=== PATIENT | male | born 1960 | race Two or more races ===

== ENCOUNTER 2020-05-05 20:00 | Inpatient (IN) | payer MEDICAID, OTHER ==
[~2020-05-05] VITALS: Ht 170.2 cm; Wt 61.7 kg
[~2020-05-05 20:00] MED LIST: PHEN100C4
[2020-05-05] MEDS ORDERED: SODIUM CHLORIDE 0.9% 500 ML IV ONE (20:15)
[2020-05-05] MEDS ORDERED: LEVETIRACETAM 1000MG/100ML 100 ML IV ONE (20:15)
[2020-05-05] MEDS ORDERED: ONDANSETRON HCL 4MG/2ML INJ IV ONE (20:45)
[2020-05-05] MEDS ORDERED: LEVETIRACETAM 500MG PREMIX 100 ML IV ONE (20:45)
[2020-05-05] MEDS ORDERED: LORAZEPAM 2MG/ML CPJ IV ONE ×2 (20:45→21:00)
[2020-05-05] MEDS ORDERED: LIDOCAINE HCL/EPINEPHRINE 1%-EPI 1:100,000 20 ML VIAL INFIL NR (20:45)
[2020-05-05] MEDS ORDERED: LIDOCAINE HCL/EPINEPHRINE 1%-EPI 1:100,000 30 ML VIAL INFIL ONE (20:45)
[2020-05-05] MEDS ORDERED: LORAZEPAM 2MG/ML CPJ ONE (21:09)
[2020-05-05 21:21] LABS: BASOPHILS % 0.7 % (0.0-2.0); EOSINOPHILS % 0.8 % (0.0-5.0); HEMATOCRIT. 42.1 % (42.0-52.0); HEMOGLOBIN. 14.3 g/dL (14.0-18.0); LYMPHOCYTES % 16.8 % (20.0-50.0); MEAN CORPUSCULAR HEMOGLOBIN 27.9 pg (28.0-32.0); MEAN CORPUSCULAR VOLUME 82.5 fL (80.0-94.0); MEAN PLATELET VOLUME 9.4 fl (7.4-10.4); MONOCYTES % 9.1 % (2.0-8.0); NEUTROPHILS % 72.6 % (40.0-76.0); PLATELET 107 x1000/uL (130-400); RED BLOOD CELL COUNT 5.11 mill/uL (4.7-6.1)
[2020-05-05 21:28] LABS: CHLORIDE 105 mEq/L (98-107)
[2020-05-05] MEDS ORDERED: HALOPERIDOL LACTATE 5MG/ML VIAL IM ONE (21:30)
[2020-05-05 21:33] LABS: ETHANOL BLOOD < 10 mg/dL
[2020-05-05 21:55] LABS: CLARITY URINE CLEAR (CLEAR); COLOR URINE YELLOW (YELLOW); KETONES URINE NEGATIVE (NEGATIVE); LEUKOCYTE ESTERASE URINE TRACE (NEGATIVE); NITRITE URINE NEGATIVE (NEGATIVE); OCCULT BLOOD URINE TRACE (NEGATIVE); PROTEIN URINE NEGATIVE (NEGATIVE); SPECIFIC GRAVITY URINE 1.006 (1.005-1.030); UROBILINOGEN URINE 0.2 E.U./dL (0.2-1.0)
[2020-05-05] MEDS ORDERED: NICARDIPINE 100 MG in SODIUM CHLORIDE 0.9% 60 ML IV PRN ×2 (22:00→22:30)
[2020-05-05] MEDS ORDERED: MORPHINE SULFATE 4 MG/ML CPJ (NOT FOR IM USE) IV PRN (22:00)
[2020-05-05 22:10] LABS: *AMPHETAMINES SCREEN URINE NEGATIVE (NEGATIVE); *BARBITURATES SCREEN URINE NEGATIVE (NEGATIVE); *BENZODIAZEPINES SCREEN URINE NEGATIVE (NEGATIVE)
[2020-05-05 22:11] LABS: *COCAINE SCREEN URINE NEGATIVE (NEGATIVE); CANNABINOID URINE SCREEN NEGATIVE (NEGATIVE); METHADONE URINE SCREEN NEGATIVE (NEGATIVE); OPIATES URINE SCREEN NEGATIVE (NEGATIVE); PHENCYCLIDINE URINE SCREEN NEGATIVE (NEGATIVE)
[2020-05-05] MEDS ORDERED: ACETAMINOPHEN 650MG SUPP PR PRN ×2 (22:45)
[2020-05-05] MEDS ORDERED: LORAZEPAM 2MG/ML CPJ IV PRN (22:45)
[2020-05-05] MEDS ORDERED: ONDANSETRON HCL 4MG/2ML INJ IV PRN (22:45)
[2020-05-05] MEDS ORDERED: KCL 20MEQ/100ML PREMIX 100 ML IV NR (23:59)
[2020-05-06] VITALS (32 sets, daily range): BP systolic 91–134; BP diastolic 61–80
[2020-05-06 04:57] LABS: BASOPHILS % 0.3 % (0.0-2.0); HEMATOCRIT. 40.6 % (42.0-52.0); HEMOGLOBIN. 13.8 g/dL (14.0-18.0); LYMPHOCYTES % 7.9 % (20.0-50.0); MEAN CORPUSCULAR HEMOGLOBIN 27.9 pg (28.0-32.0); MEAN CORPUSCULAR VOLUME 81.9 fL (80.0-94.0); MEAN PLATELET VOLUME 9.6 fl (7.4-10.4); MONOCYTES % 7.4 % (2.0-8.0); NEUTROPHILS % 84.4 % (40.0-76.0); PLATELET 110 x1000/uL (130-400); RED BLOOD CELL COUNT 4.95 mill/uL (4.7-6.1); RED CELL DISTRIBUTION WIDTH 13.7 % (11.6-14.6)
[2020-05-06 05:04] LABS: CHLORIDE 109 mEq/L (98-107)
[2020-05-06 05:11] LABS: PHOSPHORUS 2.2 mg/dL (2.5-4.9)
[2020-05-06 05:12] LABS: LDL CHOLESTEROL 77 mg/dL (5-100)
[2020-05-06 05:13] LABS: HDL CHOLESTEROL 50 mg/dL (40-59)
[2020-05-06] MEDS ORDERED: LEVETIRACETAM 500MG PREMIX 100 ML IV SCH (06:00)
[2020-05-06] MEDS: DEXT 5%/LACTATED RINGERS 1,000 ML IV SCH ×2 (06:30→14:40)
[2020-05-06] MEDS ORDERED: IPRATROPIUM/ALBUTEROL 0.5-3(2.5)MG/3ML NEB HHN PRN (09:15)
[2020-05-06] MEDS: PANTOPRAZOLE SODIUM 40 MG/VIAL IV SCH (10:10)
[2020-05-06] MEDS ORDERED: VANCOMYCIN 1,750 MG in DEXT 5% WATER 250 ML IV NR (11:00)
[2020-05-06] MEDS ORDERED: BACITRACIN 15GM TUBE TOP NR (12:00)
[2020-05-06] MEDS ORDERED: PIPERACILLIN/TAZOBACTAM 3.375 G in DEXT 5% WATER 100 ML IV SCH (12:00)
[2020-05-06] MEDS: LEVETIRACETAM 500MG PREMIX 100 ML IV SCH (17:35)
[2020-05-06] MEDS ORDERED: VANCOMYCIN 1 G PREMIX 200 ML IV SCH (18:00)
[2020-05-06] MEDS: VANCOMYCIN 750 MG PREMIX 150 ML IV SCH (20:46)
[2020-05-07] VITALS (18 sets, daily range): BP systolic 116–144; BP diastolic 62–81
[2020-05-07] MEDS: VANCOMYCIN 750 MG PREMIX 150 ML IV SCH (03:15)
[2020-05-07] MEDS: DEXT 5%/LACTATED RINGERS 1,000 ML IV SCH (03:15)
[2020-05-07] MEDS: LEVETIRACETAM 500MG PREMIX 100 ML IV SCH ×2 (05:06→17:57)
[2020-05-07 05:50] LABS: CHLORIDE 105 mEq/L (98-107)
[2020-05-07 05:59] LABS: HEMATOCRIT 38.9 % (42.0-52.0); HEMOGLOBIN 13.4 g/dL (14.0-18.0); MEAN CORPUSCULAR HEMOGLOBIN 28.2 pg (28.0-32.0); MEAN CORPUSCULAR VOLUME 82.2 fL (80.0-94.0); PLATELET 109 x1000/uL (130-400); RED BLOOD CELL COUNT 4.73 mill/uL (4.7-6.1)
[2020-05-07] MEDS: PANTOPRAZOLE SODIUM 40 MG/VIAL IV SCH (08:11)
[2020-05-07] MEDS ORDERED: POTASSIUM CHLORIDE 20MEQ TABLET SR PO NR (09:30)
[2020-05-07] MEDS ORDERED: CLONIDINE 0.1MG TABLET PO PRN (09:30)
[2020-05-07] MEDS: CEFAZOLIN 1000MG PREMIX 50 ML IV SCH (11:58)
[2020-05-08] VITALS: BP 118/57
[2020-05-08] MEDS: DEXT 5%/LACTATED RINGERS 1,000 ML IV SCH (01:25)
[2020-05-08] MEDS: CEFAZOLIN 1000MG PREMIX 50 ML IV SCH ×3 (01:25→11:20)
[2020-05-08 02:02] VITALS: BP 118/57
[2020-05-08 06:00] VITALS: BP 146/64
[2020-05-08] MEDS: LEVETIRACETAM 500MG PREMIX 100 ML IV SCH (06:13)
[2020-05-08 08:00] VITALS: BP 132/65
[2020-05-08] MEDS ORDERED: FAMOTIDINE 20MG/2ML VIAL IV SCH (09:00)
[2020-05-08 12:00] VITALS: BP 136/65
[2020-05-08 12:50] VITALS: BP 136/65
[2020-06-12] MEDS ORDERED: LACO200T2 PO ×2 (11:50→13:06)
[2020-06-13] MEDS ORDERED: LACT10SO7 PO (12:50)
[2020-06-13] MEDS ORDERED: KEPP500 PO (12:51)
== END 2020-05-08 15:00 | disposition home or self-care (01) | DRG 55 ==
LOC: ER 20:00 → MICUSO 21:34 → MICUNO 05-06 07:19 → 6EST 05-07 10:56
PROVIDERS: ADMIT Internal Medicine; ATTEND Internal Medicine
PROC: 0HQ0XZZ Repair Scalp Skin, External Approach (ICD-10-PCS; principal; 2020-05-06)
DX: S06.6X0A Traumatic subarachnoid hemorrhage without loss of consciousness, initial encounter (principal); S01.01XA Laceration without foreign body of scalp, initial encounter; E83.51 Hypocalcemia; E87.6 Hypokalemia; G40.909 Epilepsy, unspecified, not intractable, without status epilepticus; I10 Essential (primary) hypertension; R47.01 Aphasia; W11.XXXA Fall on and from ladder, initial encounter; Y93.89 Activity, other specified; Y92.89 Other specified places as the place of occurrence of the external cause; Y99.8 Other external cause status
CPT/HCPCS: 36415; 71045; 80048; 80053; 80061; 80185; 80305; 80320; 81003; 82962; 83036; 83735; 83880; 84100; 84484; 85025; 85027; 93005; 93970; 96365; 97162; 99291; C9113; J0690; J1953; J2060; J2270; J2405; J2543; J3370; J3480; J3490; J7040; J7050; J7060; G0480

== ENCOUNTER 2020-06-11 16:56 | Inpatient (IN) | payer MEDICAID, OTHER ==
[~2020-06-11] VITALS: Ht 167.6 cm; Wt 69.9 kg
[2020-06-11 19:20] LABS: BASOPHILS % 0.9 % (0.0-2.0); EOSINOPHILS % 1.1 % (0.0-5.0); HEMATOCRIT. 41.2 % (42.0-52.0); MEAN CORPUSCULAR HEMOGLOBIN 28.3 pg (28.0-32.0); MEAN CORPUSCULAR VOLUME 83.7 fL (80.0-94.0); MEAN PLATELET VOLUME 9.2 fl (7.4-10.4); MONOCYTES % 9.3 % (2.0-8.0); NEUTROPHILS % 70.7 % (40.0-76.0); PLATELET 114 x1000/uL (130-400); RED BLOOD CELL COUNT 4.93 mill/uL (4.7-6.1); RED CELL DISTRIBUTION WIDTH 13.9 % (11.6-14.6)
[2020-06-11 19:24] LABS: CHLORIDE 109 mEq/L (98-107)
[2020-06-11 19:30] LABS: ETHANOL BLOOD < 10 mg/dL
[2020-06-11 19:35] LABS: CREATINE KINASE 163 IU/L (39-308)
[2020-06-11] MEDS ORDERED: LORAZEPAM 2MG/ML CPJ IV ONE (19:45)
[2020-06-11] MEDS ORDERED: IOHEXOL-350 100 ML BOTTLE ONE (20:59)
[2020-06-11] MEDS ORDERED: ONDANSETRON HCL 4MG/2ML INJ IV PRN (21:30)
[2020-06-11] MEDS ORDERED: TRAZODONE HCL 50MG TABLET PO PRN (21:30)
[2020-06-11] MEDS ORDERED: AMLODIPINE 10MG TABLET PO SCH (21:30)
[2020-06-11] MEDS ORDERED: KCL 20MEQ/100ML PREMIX 100 ML IV ONE (21:30)
[2020-06-11] MEDS ORDERED: CLONIDINE 0.1MG TABLET PO PRN (21:30)
[2020-06-11] MEDS ORDERED: LORAZEPAM 2MG/ML CPJ IV PRN (21:30)
[2020-06-11] MEDS ORDERED: POTASSIUM CHLORIDE 20MEQ TABLET SR PO NR (21:30)
[2020-06-11] MEDS ORDERED: LEVETIRACETAM 500MG PREMIX 100 ML IV SCH (21:30)
[2020-06-11] MEDS ORDERED: ACETAMINOPHEN 325MG TABLET PO PRN (21:30)
[2020-06-11] MEDS: HEPARIN 5000 UNITS/ML VIAL SUBCUT SCH (21:45)
[2020-06-11 22:07] LABS: CLARITY URINE CLEAR (CLEAR); COLOR URINE YELLOW (YELLOW); KETONES URINE NEGATIVE (NEGATIVE); LEUKOCYTE ESTERASE URINE 1+ (NEGATIVE); NITRITE URINE NEGATIVE (NEGATIVE); OCCULT BLOOD URINE NEGATIVE (NEGATIVE); PROTEIN URINE NEGATIVE (NEGATIVE); SPECIFIC GRAVITY URINE 1.018 (1.005-1.030); UROBILINOGEN URINE 0.2 E.U./dL (0.2-1.0)
[2020-06-11 22:19] LABS: METHADONE URINE SCREEN NEGATIVE (NEGATIVE); OPIATES URINE SCREEN NEGATIVE (NEGATIVE); PHENCYCLIDINE URINE SCREEN NEGATIVE (NEGATIVE)
[2020-06-11 22:20] LABS: *AMPHETAMINES SCREEN URINE NEGATIVE (NEGATIVE); *BARBITURATES SCREEN URINE NEGATIVE (NEGATIVE); *BENZODIAZEPINES SCREEN URINE NEGATIVE (NEGATIVE); *COCAINE SCREEN URINE NEGATIVE (NEGATIVE); CANNABINOID URINE SCREEN NEGATIVE (NEGATIVE)
[2020-06-11 22:53] VITALS: BP_SYST 135; BP_SYST 146; BP_SYST 155; BP_DIAS 77; BP_DIAS 83; BP_DIAS 94
[2020-06-11] MEDS ORDERED: KCL 20MEQ/100ML PREMIX 100 ML IV NR (23:45)
[2020-06-12] VITALS: BP 133/86
[2020-06-12 04:00] VITALS: BP_SYST 136; BP_SYST 142; BP_DIAS 74
[2020-06-12 06:22] VITALS: BP 136/74
[2020-06-12 06:30] LABS: BASOPHILS % 0.4 % (0.0-2.0); EOSINOPHILS % 0.8 % (0.0-5.0); HEMATOCRIT. 40.8 % (42.0-52.0); LYMPHOCYTES % 13.8 % (20.0-50.0); MEAN CORPUSCULAR HEMOGLOBIN 28.5 pg (28.0-32.0); MEAN PLATELET VOLUME 9.5 fl (7.4-10.4); MONOCYTES % 7.3 % (2.0-8.0); NEUTROPHILS % 77.7 % (40.0-76.0); PLATELET 107 x1000/uL (130-400); RED BLOOD CELL COUNT 4.92 mill/uL (4.7-6.1)
[2020-06-12 07:14] LABS: CHLORIDE 111 mEq/L (98-107)
[2020-06-12 08:00] VITALS: BP_SYST 125; BP_SYST 134; BP_SYST 143; BP_DIAS 74; BP_DIAS 78; BP_DIAS 81
[2020-06-12] MEDS ORDERED: PNEUMOCOCCAL 23-VAL P-SAC VAC 0.5 ML IM ONE (08:00)
[2020-06-12] MEDS ORDERED: LEVETIRACETAM 500MG PREMIX 100 ML IV SCH (09:00)
[2020-06-12] MEDS: HEPARIN 5000 UNITS/ML VIAL SUBCUT SCH ×2 (09:17→21:08)
[2020-06-12] MEDS ORDERED: LACO200T2 PO ×2 (11:50→13:06)
[2020-06-12 12:00] VITALS: BP 124/60
[2020-06-12] MEDS: SODIUM CHLORIDE 0.9% 1,000 ML IV SCH ×2 (12:34→21:56)
[2020-06-12] MEDS: LACTULOSE 20G/30ML UDC PO SCH ×2 (15:41→21:08)
[2020-06-12 20:00] VITALS: BP 100/57
[2020-06-12] MEDS: LEVETIRACETAM 500MG TABLET PO SCH (21:08)
[2020-06-13] VITALS: BP 107/63
[2020-06-13 04:00] VITALS: BP_SYST 130; BP_SYST 135; BP_SYST 147; BP_DIAS 70; BP_DIAS 77; BP_DIAS 86
[2020-06-13] MEDS: LACTULOSE 20G/30ML UDC PO SCH ×2 (05:37→14:00)
[2020-06-13 06:35] LABS: CHLORIDE 110 mEq/L (98-107)
[2020-06-13 06:42] LABS: BASOPHILS % 0.7 % (0.0-2.0); EOSINOPHILS % 1.6 % (0.0-5.0); HEMATOCRIT. 44.4 % (42.0-52.0); HEMOGLOBIN. 14.9 g/dL (14.0-18.0); LYMPHOCYTES % 23.9 % (20.0-50.0); MEAN CORPUSCULAR HEMOGLOBIN 28.3 pg (28.0-32.0); MEAN CORPUSCULAR VOLUME 84.4 fL (80.0-94.0); MEAN PLATELET VOLUME 9.7 fl (7.4-10.4); MONOCYTES % 7.3 % (2.0-8.0); NEUTROPHILS % 66.5 % (40.0-76.0); PLATELET 97 x1000/uL (130-400); RED BLOOD CELL COUNT 5.25 mill/uL (4.7-6.1); RED CELL DISTRIBUTION WIDTH 14.1 % (11.6-14.6)
[2020-06-13 08:00] VITALS: BP_SYST 123; BP_SYST 125; BP_SYST 131; BP_DIAS 64; BP_DIAS 73; BP_DIAS 78
[2020-06-13] MEDS: LEVETIRACETAM 500MG TABLET PO SCH (08:57)
[2020-06-13] MEDS: HEPARIN 5000 UNITS/ML VIAL SUBCUT SCH (08:57)
[2020-06-13 12:01] VITALS: BP 101/46
[2020-06-13] MEDS ORDERED: LACT10SO7 PO (12:50)
[2020-06-13] MEDS ORDERED: KEPP500 PO (12:51)
[2020-06-13] MEDS: SODIUM CHLORIDE 0.9% 1,000 ML IV SCH (12:55)
[2020-06-13 15:48] VITALS: BP 101/46
== END 2020-06-13 16:54 | disposition home or self-care (01) | DRG 204 ==
LOC: ER 16:56 → 8WST 21:18 → ENRESERV 21:45
PROVIDERS: ADMIT Internal Medicine; ATTEND Internal Medicine
PROC: 4A00X4Z Measurement of Central Nervous Electrical Activity, External Approach (ICD-10-PCS; principal; 2020-06-11)
DX: I95.1 Orthostatic hypotension (principal); R00.1 Bradycardia, unspecified; G40.909 Epilepsy, unspecified, not intractable, without status epilepticus; E87.6 Hypokalemia; I10 Essential (primary) hypertension; E72.20 Disorder of urea cycle metabolism, unspecified; Z79.899 Other long term (current) drug therapy; Z87.820 Personal history of traumatic brain injury; E83.51 Hypocalcemia; E87.8 Other disorders of electrolyte and fluid balance, not elsewhere classified
CPT/HCPCS: 36415; 70496; 70498; 71045; 80053; 80305; 80320; 81003; 82140; 82550; 82962; 83605; 83735; 84443; 84484; 85025; 86850; 86900; 90732; 93005; 93306; 93880; 95816; 97162; 99285; J1644; J1953; J2060; J3480; J7030; Q9967; G0480